=== PATIENT | male | born 1960 | race Hispanic/Latino ===

== ENCOUNTER 2019-02-27 05:57 | Day surgery (SDC) | payer BC ==
[2019-02-27] VITALS (7 sets, daily range): BP systolic 109–125; BP diastolic 67–84
[~2019-02-27] VITALS: Ht 170.2 cm; Wt 72.6 kg
[~2019-02-27 05:57] MED LIST: ALPR0.25 PO; LATA7.5D OU; PANT40TA25 PO; SODIUM CHLORIDE 0.9% 1000ML 1,000 ML IV ONE; TIMO.5OS OU
[2019-02-27] MEDS ORDERED: PROPOFOL 10 MG/ML 20ML VIAL IV ONE ×2 (06:23→06:24)
[2019-02-27] MEDS ORDERED: GLYCOPYRROLATE 0.2 MG/ML 5 ML VIAL ONE (06:24)
[2019-02-27] MEDS ORDERED: PANT40TA PO (06:51)
== END 2019-02-27 08:00 | disposition home or self-care (01) ==
LOC: DAH 05:57 → ENDO 05:57
PROVIDERS: ATTEND Internal Medicine
DX: R07.0 Pain in throat (principal); K21.9 Gastro-esophageal reflux disease without esophagitis; K44.9 Diaphragmatic hernia without obstruction or gangrene; K22.8 Other specified diseases of esophagus; F41.9 Anxiety disorder, unspecified; K29.70 Gastritis, unspecified, without bleeding; K57.30 Diverticulosis of large intestine without perforation or abscess without bleeding; H40.9 Unspecified glaucoma; Z79.899 Other long term (current) drug therapy; Z86.010 Personal history of colon polyps
CPT/HCPCS: 43239; 91035; A4215 ×2; A4221; A4222; A4223; A4606; A4615; A4649; A4663; J2704 ×2; J3490; J7030